=== PATIENT | female | born 1955 | race Caucasian/White ===

== ENCOUNTER 2017-05-07 12:57 | Day surgery (SDC) | payer OTHER ==
[2017-05-07 14:45] VITALS: BP 124/71; PULSE 60; RESP 20; TEMP 98.1; O2SAT 99
[2017-05-07 14:48] VITALS: BP 124/71; PULSE 60; RESP 20; TEMP 98.1; O2SAT 99
[2017-05-07] MEDS ORDERED: LIDOCAINE HCL 1% 20 ML VIAL ONE ×2 (14:51→15:04)
[2017-05-07 15:03] VITALS: BP 127/72; PULSE 62; RESP 18; O2SAT 99
[2017-05-07 15:38] VITALS: BP 132/74; PULSE 67; RESP 19; O2SAT 99
--- NOTE | 2017-05-10 10:05 | RADRPT ---
EXAM DATE/TIME: 05/07/2017 13:34 [place] COMPARISON: No previous studies available for comparison. EXTERNAL COMPARISON: [facility], US THYROID , Jun 03 2016. INDICATIONS : Thyroid nodule. MEDICAL HISTORY : Hypothyroidism. Hypercholesterolemia. Hearing aids. Depression. SURGICAL HISTORY : Left wirst surgery. ENCOUNTER: Initial ACUITY: > 1 yr PAIN SCORE: 0/10 LOCATION: Left neck ORGAN: Left thyroid lobe SPECIMENS: Five fine needle aspirate(s) submitted for pathologic evaluation. DEVICE: 22 gauge needle Post procedure scanning reveals no hematoma or other complication. The possibility does exist that the tissue obtained will be non-diagnostic. If the sample is non-turner gnostic a repeat biopsy or surgical biopsy may need to be performed. TECHNIQUE: 1. Ultrasound guidance for needle biopsy. 2. Needle biopsy. The risks, benefits and alternatives to the procedure were explained and verbal and written consent w as obtained. The site was prepped in sterile fashion. Full sterile technique was used, including ca p, mask, sterile gloves and gown and a large sterile sheet. Hand hygiene and 2% chlorhexidine and/or betadine/alcohol prep was utilized per protocol for cutaneous antisepsis. The skin and subcutaneous tissues were infiltrated with local anesthetic solution. Sterile gel and sterile probe cover were u tilized for ultrasound guidance. With the patient on the ultrasound table, images were obtained. A needle was advanced into the identified target and the number of specimens as above obtained and ballesteros bmitted for pathologic evaluation. The initial pathologic evaluation demonstrated lymphocytes. The pa tient was brought back to the ultrasound room repeat biopsy was performed. 2 samples were placed in R [place] and sent to pathology. The patient tolerated the procedure well and left the ultrasound suite in stable condition. CONCLUSION: Uncomplicated ultrasound guided needle biopsy. Henrry Rivera MD on May 10, 2017 at 9:59 Board Certified Radiologist. This report was verified electronically.
== END 2017-05-07 15:30 | disposition home or self-care (01) ==
LOC: HRAD 12:57 → HRIP 13:02 → HRAD 15:30
PROVIDERS: ATTEND Radiology Body Imaging
DX: E04.2 Nontoxic multinodular goiter (principal)
CPT/HCPCS: 10022; 76942; 88172; 88173